=== PATIENT | female | born 1960 | race Caucasian/White ===

== ENCOUNTER 2019-09-21 13:05 | Day surgery (SDC) | payer OTHER ==
[2019-09-20 12:50] VITALS: BMI 31.7
[2019-09-21] MEDS ORDERED: MIDAZOLAM HCL 2 MG/2 ML SINGLE DOSE VIAL ONE (14:07)
[2019-09-21] MEDS ORDERED: PROPOFOL 20 ML ONE (14:07)
--- NOTE | 2019-09-21 14:26 | HP ---
History & Physical Update - History History: No Change - Physical Physical: No Change - Assessment Assessment: No Change - Plan Plan: No Change
[2019-09-21] MEDS ORDERED: ceFAZolin SODIUM 1 GM VIAL ONE (14:35)
[2019-09-21] MEDS ORDERED: ceFAZolin SODIUM 1 GM VIAL IVPB ONE (14:35)
[2019-09-21] MEDS ORDERED: oxyCODONE HCL 5 MG TABLET PO PRN (15:44)
[2019-09-21] MEDS ORDERED: PROMETHAZINE HCL 25 MG/1 ML VIAL IVPUSH PRN (15:44)
[2019-09-21] MEDS ORDERED: ONDANSETRON 4 MG/2 ML VIAL IVPUSH PRN (15:44)
[2019-09-21] MEDS ORDERED: LACTATED RINGERS SOLUTION 1,000 ML IV SCH (15:45)
--- NOTE | 2019-09-21 15:58 | OP ---
Operative Note - Note: Operative Date: 09/21/19 Pre-Operative Diagnosis: Postmenopausal bleeding, endometrial polyp Operation: Hysteroscopy, D&C, polypectomy Findings: Normal uterine cavity with a large endometrial polyp. Post-Operative Diagnosis: Same as Pre-op Surgeon: Baldo Doshi Anesthesiologist/BLOCK SAW OPERATOR: Barbara Arrington MD Anesthesia: General Specimens Removed: Endometrial polyp, endometrial curettings Estimated Blood Loss (mls): 20 Blood Volume Replaced (mls): 0 Fluid Volume Replaced (mls): 1,000 Operative Report Dictated: Yes
[2019-09-21 16:34] VITALS: TEMP 97.8
[2019-09-21 17:37] VITALS: BP 124/70; PULSE 65
--- NOTE | 2019-09-22 10:53 | OP ---
DATE OF OPERATION: 09/21/2019 PREOPERATIVE DIAGNOSES: Postmenopausal bleeding, endometrial polyp. POSTOPERATIVE DIAGNOSES: Postmenopausal bleeding, endometrial polyp. PROCEDURE: Hysteroscopy, dilatation and curettage, polypectomy. SURGEON: Baldo Doshi MD ANESTHESIOLOGIST: MIKHAIL Hanley ANESTHESIA: General. COMPLICATIONS: None. ESTIMATED BLOOD LOSS: 20 mL. INTRAVENOUS FLUIDS: 1000 mL. PATHOLOGY: Endometrial polyps and endometrial curettings. COMPLICATIONS: None. PROCEDURE DICTATION: The patient was met preoperatively. Risks, benefits, and alternatives of surgery were discussed in details. All questions were answered. The consent form was reviewed and discussed. The patient verbalized her understanding. The consent form was signed. The patient requested to proceed with the surgery. The patient was brought to the OR with the IV running. She was placed on the surgical table in the supine position. The general anesthesia was achieved without difficulty. The patient was then placed in a dorsal lithotomy position using adjustable Dominic stirrups. She was examined under anesthesia. The uterus was noted to be small and mobile with no pelvic or adnexal masses. The patient was then prepped and draped in the usual sterile fashion. A weighted speculum was introduced inside the vagina with good visualization of the cervix. The cervix was grasped with a single-tooth tenaculum. The cervical os was dilated to accommodate a size 21 Urena dilator. A hysteroscopy was then performed. The hysteroscope was gently advanced into the uterine cavity. A normal uterine cavity was noted. There was a large endometrial polyp also observed. An attempt was made to excise the uterine polyp using a Symphion resectoscope. However, the Symphion resectoscope was not working. The Symphion was then removed from the patient. A polyp forceps was used to completely remove the uterine polyp. Once this was accomplished, a uterine curettage was performed using a sharp curette. All of the tissue was sent to pathology. A hysteroscopy was then performed once again. A normal uterine cavity was noted. No polyps or lesions were observed. Good hemostasis was noted. All of the instruments were removed from the patient. Good hemostasis was confirmed. Sponge, lap, instrument counts were correct. The patient was returned to supine position. She was then transferred to recovery room in stable condition and awake. Khoi MATHEW/[id number]
--- NOTE | 2019-09-23 16:43 | PATH ---
Surgical Pathology Report Patient Name: NOREEN GAINES [facility]. Rec. #: [id number] /Age/Gender: 1960 (Age: 59) / F Account: [id number] Location: [facility] Taken: 09/21/2019 Received: 09/22/2019 Reported: 09/23/2019 Physicians: Baldo Doshi M.D. Specimen(s) Received A: ENDOMETRIAL CURETTINGS B: ENDOMETRIAL POLYP Clinical History Postmenopausal bleeding, endometrial polyp Final Diagnosis A. ENDOMETRIAL CURETTINGS, DILATION AND CURETTAGE: FRAGMENTS OF ENDOMETRIAL POLYP, PROLIFERATIVE ENDOMETRIUM, AND BENIGN ENDOCERVICAL EPITHELIUM ADMIXED WITH BLOOD. B. ENDOMETRIAL POLYP, POLYPECTOMY: FRAGMENTS OF ENDOMETRIAL POLYP. Electronically Signed Marianna Toth M.D. Gross Description A. Received in formalin labeled "endometrial curettings," is a 3.5 x 2.5 x 0.3 cm aggregate of escobedo brown soft tissue fragments. The formalin is filtered and the specimen is entirely submitted in 2 cassettes. B. Received in formalin labeled "endometrial polyp," are 3 escobedo, polypoid portions of soft tissue ranging from 1.0 x 0.4 x 0.2 cm to 3.5 x 1.4 x 0.5 cm. The specimen is entirely submitted in 3 cassettes as follows: 1-two whole polyps; 3-6-hafcwfrm largest polyp. 09/22/201909/22/2019
== END 2019-09-21 17:40 | disposition home or self-care (01) ==
LOC: JASU-SURG 13:05
PROVIDERS: ATTEND Obstetrics & Gynecology
PROC: 0UJD8ZZ Inspection of Uterus and Cervix, Via Natural or Artificial Opening Endoscopic (ICD-10-PCS; 2019-09-21)
PROC: 0UB97ZX Excision of Uterus, Via Natural or Artificial Opening, Diagnostic (ICD-10-PCS; principal; 2019-09-21 14:00)
PROC: 0UDB7ZX Extraction of Endometrium, Via Natural or Artificial Opening, Diagnostic (ICD-10-PCS; 2019-09-21 14:00)
DX: N84.0 Polyp of corpus uteri (principal); M95.0 Acquired deformity of nose
CPT/HCPCS: 86850; 86900; 86901; 88305-TC; 94760